=== PATIENT | female | born 2000 | race Caucasian/White ===

== ENCOUNTER 2021-05-26 17:55 | Emergency (ER) | payer OTHER ==
[2021-05-26 18:26] VITALS: BP 96/70; PULSE 95; RESP 16; TEMP 98
[2021-05-26] MEDS ORDERED: ACETAMINOPHEN TAB 500 MG TAB PO STA (18:38)
--- NOTE | 2021-05-26 18:43 | ED ---
General Adult HPI - General Chief complaint: Extremity Injury, Upper Stated complaint: Hand injury, [facility] Time Seen by Provider: 05/26/21 18:35 Source: patient, RN notes reviewed, old records reviewed Mode of arrival: ambulatory Limitations: no limitations - History of Present Illness Initial comments: Well-appearing 20-year-old female presents with complaints of left hand pain. Patient states she was at work around 2:00 when a press came down and pinched the side of her left hand. She has full range of motion. There is a small amount of bruising noted, no broken skin. She states that she is 17 weeks . No other medical history. -: hour(s) (4) Location: left, upper extremity (hand along lateral fifth metacarpal) Severity scale (1-10): 6 Quality: constant Consistency: constant Improves with: immobilization Worsens with: movement Associated Symptoms: denies other symptoms Treatments Prior to Arrival: none - Related Data Allergies Allergy/AdvReac Type Severity Reaction Status Date / Time cephalexin [From Keflex] Allergy Unknown Verified 05/26/21 18:26 Review of Systems ROS Statement: Those systems with pertinent positive or pertinent negative responses have been documented in the HPI. ROS Other: All systems not noted in ROS Statement are negative. Past Medical History Past Medical History: No Reported History History of Any Multi-Drug Resistant Organisms: None Reported Past Surgical History: No Surgical Hx Reported Past Psychological History: No Psychological Hx Reported Smoking Status: Current every day smoker Past Alcohol Use History: None Reported Past Drug Use History: None Reported General Exam Limitations: no limitations General appearance: alert, in no apparent distress Eye exam: Present: normal appearance ENT exam: Present: normal exam, normal oropharynx, mucous membranes moist Respiratory exam: Present: normal lung sounds bilaterally. Absent: respiratory distress, accessory muscle use Cardiovascular Exam: Present: regular rate Extremities exam: Present: normal capillary refill Left Elbow exam: Present: normal inspection, full ROM. Absent: tenderness Forearm Wrist exam: Present: normal inspection, full ROM. Absent: tenderness Hand Wrist exam: Present: full ROM, tenderness (lateral aspect fifth metacarpal), swelling (minimal ), ecchymosis (approx 0.5cm area of ecchymosis). Absent: abrasion, laceration, deformity, crepitus, dislocation, erythema, nail avulsion, subungual hematoma Neurosensory exam: Present: radial nerve intact, ulnar nerve intact, median nerve intact Vascular: Present: normal capillary refill, radial pulse Neurological exam: Present: alert, oriented X3, normal gait Psychiatric exam: Present: normal affect, normal mood Skin exam: Present: warm, dry, normal color. Absent: cyanosis Course Vital Signs 05/26/21 18:23 Temperature 98 F Pulse Rate 95 Respiratory 16 Rate Blood Pressure 96/70 O2 Sat by Pulse 98 Oximetry Medical Decision Making - Medical Decision Making 20-year-old female presents with complaints of pain on lateral aspect of left metacarpal after getting it pinched in a press around 2:00 today. XR shows no acute fracture or dislocation of the hand. Patient has full range of motion. She is neurovascularly intact. Patient be discharged home to follow up with her primary care doctor. Directed to take Tylenol as needed for pain. Case discussed with Dr. Lomas Disposition Clinical Impression: Contusion, hand Disposition: HOME SELF-CARE Condition: Good Instructions (If sedation given, give patient instructions): Hand Sprain (ED) Additional Instructions: Tylenol 6 hours as needed for pain. Continue spice to decrease inflammation. Follow-up with the primary care doctor or orthopedics next week if pain continues. Is patient prescribed a controlled substance at d/c from ED?: No Referrals: None,Stated [Primary Care Provider] - 1-2 days Andre Alaniz MD [Medical Doctor] - 1-2 days Time of Disposition: 19:07
--- NOTE | 2021-05-26 19:03 | XR ---
EXAMINATION TYPE: XR hand complete LT DATE OF EXAM: 05/26/2021 CLINICAL HISTORY: Pain/injury TECHNIQUE: Frontal, lateral and oblique images of the left hand are obtained. COMPARISON: None. FINDINGS: There is no acute fracture/dislocation evident in the left hand. The joint spaces in the l eft hand appear within normal limits. The overlying soft tissue appears unremarkable. IMPRESSION: There is no acute fracture or dislocation in the left hand.
== END 2021-05-26 19:45 | disposition home or self-care (01) ==
LOC: EC 17:55
DX: O9A.212 Injury, poisoning and certain other consequences of external causes complicating pregnancy, second trimester (principal); S60.222A Contusion of left hand, initial encounter; F17.200 Nicotine dependence, unspecified, uncomplicated; Z3A.17 17 weeks gestation of pregnancy; Z88.1 Allergy status to other antibiotic agents; X58.XXXA Exposure to other specified factors, initial encounter
CPT/HCPCS: 99283